=== PATIENT | male | born 1960 | race Two or more races ===

== ENCOUNTER → 2024-08-17 | Outpatient (CLI) | payer MEDICARE, BC, SELFPAY ==
--- NOTE | 2024-08-17 08:30 | XR_ITS ---
Examination: MRI lumbar spine without contrast Date and time of exam: August 17, 2024 0831 hours INDICATIONS: Lower back pain and stiffness 8 years Technique: Multiple MRI axial and sagittal sections lumbar spine. Sagittal T2-weighted images, TR 3500, TE 118 T1 weighted transverse sections, TR 688 T8.5, T2-weighted sagittal sections T1 weighted sagittal sections TR 621, TE 30 T2 axial sections, TR 4, 190, TE 84. Findings: Grade 1 anterolisthesis L5 on S1 No lumbar fracture Adequate marrow signal lumbar vertebral bodies Mild disc narrowing L4-L5 moderate disc narrowing L5-S1 L5-S1 12 mm central lumbar disc bulge displacing both S1 nerve roots extending to the intervertebral foramina with moderate to severe bilateral L5 ganglionic compression L4-L5 6 mm central lumbar disc bulge L3-L4 no disc protrusion L2-L3 no disc protrusion L1-L2 no disc protrusion IMPRESSION: L5-S1 12 mm several lumbar disc bulges displacing both S1 nerve roots, extending to the intervertebral foramina with moderate to severe bilateral L5 ganglionic compression L4-L5 6 mm central lumbar disc bulge
== END | disposition home or self-care (01) ==
PROVIDERS: PCP Physician Assistant; Referring Provider Physician Assistant; Visit Provider Physician Assistant
DX: M51.370 Other intervertebral disc degeneration, lumbosacral region with discogenic back pain only (principal); M51.360 Other intervertebral disc degeneration, lumbar region with discogenic back pain only; G95.20 Unspecified cord compression
CPT/HCPCS: 72148